=== PATIENT | male | born 1990 | race American Indian/Alaskan Native ===

== ENCOUNTER 2018-09-21 01:48 | Emergency (ER) | payer OTHER ==
[2018-09-21 02:11] VITALS: RESP 18; O2SAT 100
--- NOTE | 2018-09-21 02:58 | ED PDOC ---
Arrival/HPI - General Chief Complaint: ENT Problem Time Seen by Provider: 09/21/18 02:18 Historian: Patient - History of Present Illness Narrative History of Present Illness (Text): 09/21/18 02:54 27 year old male, with no significant past medical history, presents to the emergency department for evaluation of foreign body in throat. Patient states an hour prior to his arrival, he was eating ice cream with nuts. Patient states he then felt a nut got stuck in the anterior throat area. Patient is able to drink liquids. Patient denies any nausea, vomiting, shortness of breath, chest pain, or any other complaints. Time/Duration: 1 hour Symptom Onset: Gradual Symptom Course: Unchanged Activities at Onset: Light, Eating Context: Home Past Medical History - Provider Review Nursing Documentation Reviewed: Yes - Psychiatric Hx Substance Use: No - Anesthesia Hx Anesthesia: No Hx Anesthesia Reactions: No Hx Malignant Hyperthermia: No Family/Social History - Physician Review Nursing Documentation Reviewed: Yes Family/Social History: No Known Family HX Smoking Status: Current Some Days Smoker Hx Alcohol Use: No Hx Substance Use: No Allergies/Home Meds Allergies/Adverse Reactions: Allergies No Known Allergies Allergy (Verified 09/21/18 02:11) Review of Systems - Physician Review All systems were reviewed & negative as marked: Yes - Review of Systems ENT: Other (FB in throat) Respiratory: absent: SOB Cardiovascular: absent: Chest Pain Gastrointestinal: absent: Nausea, Vomiting Physical Exam Vital Signs Reviewed: Yes Vital Signs Temp Pulse Resp BP Pulse Ox 09/21/18 02:09 98.4 F 70 18 126/77 100 Temperature: Afebrile Blood Pressure: Normal Pulse: Regular Respiratory Rate: Normal Appearance: Positive for: Well-Appearing, Non-Toxic, Comfortable Pain Distress: None Mental Status: Positive for: Alert and Oriented X 3 - Systems Exam Head: Present: Atraumatic, Normocephalic Pupils: Present: PERRL Extroacular Muscles: Present: EOMI Conjunctiva: Present: Normal Mouth: Present: Moist Mucous Membranes Pharnyx: No: Strider Neck: Present: Normal Range of Motion Respiratory/Chest: Present: Clear to Auscultation, Good Air Exchange. No: Respiratory Distress, Accessory Muscle Use Cardiovascular: Present: Regular Rate and Rhythm, Normal S1, S2. No: Murmurs Abdomen: No: Tenderness, Distention, Peritoneal Signs Back: Present: Normal Inspection Upper Extremity: Present: Normal Inspection. No: Cyanosis, Edema Lower Extremity: Present: Normal Inspection. No: Edema Neurological: Present: GCS=15, CN II-XII Intact, Speech Normal Skin: Present: Warm, Dry, Normal Color. No: Rashes Psychiatric: Present: Alert, Oriented x 3, Normal Insight, Normal Concentration Medical Decision Making ED Course and Treatment: 09/21/18 02:57 Impression: 27 year old male presents with foreign object in throat Plan: -- CT Neck soft tissue -- Reassess and disposition Prior Visits: Notes and results from previous visits were reviewed Progress Notes: 09/21/18 04:21 CT SOFT TISSUE NECK WITH CONTRAST REASON FOR EXAM: Rule out foreign body. TECHNIQUE: The patient was scanned in a multi-detector CT scanner. High resolution transaxial imaging was performed without intravenous administration of contrast material. Sagittal and coronal images were reconstructed. COMPARISON: None. FINDINGS: Moderate hypertrophy of the adenoids. Normal bilateral parotid glands. Normal bilateral retirement plan counselor spaces. Normal bilateral parapharyngeal spaces. Normal bilateral carotid spaces. Normal bilateral sublingual and submandibular glands. Normal visualized nasopharynx. Normal retropharyngeal space. Normal perivertebral space. Normal visualized bilateral faucial tonsils. The visualized tongue, tongue base and oropharynx are normal. The visualized cervical lymph nodes (levels I-) are within normal size limits, and maintain normal morphology. There is no demonstrated solid or cystic mass lesion. Normal epiglottis, bilateral vallecula and hypopharynx. The pre-epiglottic and paraglottic adipose spaces are normal. Normal visualized bilateral piriform sinuses, aryepiglottic folds, vocal cords, and arytenoid-cricoid articulations. Normal subglottic trachea. Normal bilateral lobes of the thyroid gland. Normal visualized pulmonary apices. Normal visualized paranasal sinuses. Normal visualized cervical spine. IMPRESSION: Moderate hypertrophy of the adenoids. No radiopaque foreign body is seen. 09/21/18 05:01 Case was discussed with Dr Bal, ENT, who recommends patient to follow up later today in the office for further follow up reevaluation. Of note, patient stated that he felt much better, felt less irritation to his throat and unsure if in fact a nut had lodged. - RAD Interpretation Radiology Orders: 09/21/18 02:40 NECK SOFT TISSUE W/O CONTRAST [CT] Stat - Scribe Statement The provider has reviewed the documentation as recorded by the Scribe Clif Herrmann Provider Scribe Attestation: All medical record entries made by the Scribe were at my direction and personally dictated by me. I have reviewed the chart and agree that the record accurately reflects my personal performance of the history, physical exam, medical decision making, and the department course for this patient. I have also personally directed, reviewed, and agree with the discharge instructions and disposition. Disposition/Present on Arrival - Present on Arrival Any Indicators Present on Arrival: No History of DVT/PE: No History of Uncontrolled Diabetes: No Urinary Catheter: No History of Decub. Ulcer: No History Surgical Site Infection Following: None - Disposition Have Diagnosis and Disposition been Completed?: Yes Diagnosis: Throat irritation Disposition: HOME/ ROUTINE Disposition Time: 04:58 Condition: STABLE Additional Instructions: Follow up with the ear/nose/throat doctor later today Referrals: Bk Bal, [Staff Provider] - Follow up with primary Forms: [employer] ([place])
[2018-09-21 04:30] VITALS: BP 121/69; PULSE 86; TEMP 98.7
--- NOTE | 2018-09-21 12:36 | CT ---
Date of service: 09/21/2018 PROCEDURE: CT NECK WITHOUT CONTRAST HISTORY: R/O FB nut swallowed COMPARISON: None available. TECHNIQUE: CT of the neck without intravenous contrast. Coronal and sagittal reformats generated. Radiation dose: Total exam DLP = 546.22 mGy-cm. This CT exam was performed using one or more of the following dose reduction techniques: Automated exposure control, adjustment of the mA and/or kV according to patient size, and/or use of iterative reconstruction technique. FINDINGS: NASOPHARYNX: Mild enlargement of the adenoids. SUPRAHYOID NECK: Unremarkable oropharynx, oral cavity, parapharyngeal space and retropharyngeal space. INFRAHYOID NECK: Unremarkable larynx, hypopharynx, and supraglottic space. Vocal cords intact. MASS: None. GLANDS: Parotid and submandibular glands unremarkable. Normal size thyroid gland, without nodule. LYMPH NODES: Mildly enlarged submandibular nodes CERVICAL SPINE: No fracture or focal lesion. OTHER FINDINGS: The report concurs with the preliminary [facility] report IMPRESSION: No evidence of foreign body
== END 2018-09-21 05:05 | disposition home or self-care (01) ==
LOC: ED 01:48
DX: J39.2 Other diseases of pharynx (principal)